=== PATIENT | female | born 1995 | race Caucasian/White ===

== ENCOUNTER 2020-05-30 11:23 | Emergency (ER) | payer OTHER ==
[~2020-05-30] VITALS: Ht 170.2 cm; Wt 71.2 kg
[2020-05-30] MEDS ORDERED: PRENA1 TRUE CO1 EACH (11:30)
== END 2020-05-30 15:41 | disposition home or self-care (01) ==
LOC: ER 11:23
DX: O26.851 Spotting complicating pregnancy, first trimester (principal); Z3A.00 Weeks of gestation of pregnancy not specified

== ENCOUNTER → 2021-02-07 | Outpatient (CLI) | payer OTHER ==
[~2021-02-07] MED LIST: PRENA1 TRUE CO1 EACH
== END | disposition home or self-care (01) ==
LOC: PRENATAL 08:00
PROVIDERS: ATTEND Obstetrics & Gynecology Maternal & Fetal Medicine
DX: O35.0XX1 Maternal care for (suspected) central nervous system malformation in fetus, fetus 1 (principal); O35.3XX1 Maternal care for (suspected) damage to fetus from viral disease in mother, fetus 1; O98.512 Other viral diseases complicating pregnancy, second trimester; Z36.89 Encounter for other specified antenatal screening; Z3A.23 23 weeks gestation of pregnancy

== ENCOUNTER 2021-05-17 13:30 | Inpatient (IN) | payer OTHER ==
[~2021-05-17] VITALS: Ht 167.6 cm; Wt 82.1 kg
[2021-06-01] MEDS ORDERED: VALACYCLOVIR500 MG PO (18:30)
== END 2021-06-04 13:21 | disposition home or self-care (01) | DRG 807 ==
LOC: LDR 06-01 16:36 → PED 06-02 14:20 → LDR 06-03 13:30 → PED 06-04 13:21
PROVIDERS: ADMIT Obstetrics & Gynecology; ATTEND Obstetrics & Gynecology
PROC: 3E0P7VZ Introduction of Hormone into Female Reproductive, Via Natural or Artificial Opening (ICD-10-PCS; 2021-06-01)
PROC: 4A1HXFZ Monitoring of Products of Conception, Cardiac Rhythm, External Approach (ICD-10-PCS; 2021-06-01)
PROC: 10E0XZZ Delivery of Products of Conception, External Approach (ICD-10-PCS; principal; 2021-06-02)
PROC: 0W8NXZZ Division of Female Perineum, External Approach (ICD-10-PCS; 2021-06-02)
PROC: 10907ZC Drainage of Amniotic Fluid, Therapeutic from Products of Conception, Via Natural or Artificial Opening (ICD-10-PCS; 2021-06-02)
DX: O24.429 Gestational diabetes mellitus in childbirth, unspecified control (principal); Z37.0 Single live birth; Z3A.39 39 weeks gestation of pregnancy

== ENCOUNTER 2024-06-26 05:49 | Inpatient (IN) | payer OTHER ==
[2024-06-26] VITALS (10 sets, daily range): BP systolic 124–144; BP diastolic 51–74
[~2024-06-26] VITALS: Ht 170.2 cm; Wt 82.1 kg
[~2024-06-26 05:49] MED LIST changes: +VALACYCLOVIR500 MG PO
[2024-06-26 07:55] LABS: HEMATOCRIT 38.6 % (36.0-45.00); HEMOGLOBIN 13.2 g/dL (12.0-15.00); MEAN CELL VOLUME 85.4 fL (80.00-100.00); MEAN CORPUSCULAR HEMOGLOBIN 29.1 pg (27.00-32.0); MEAN CORPUSCULAR HGB CONC 34.1 g/dl (32.0-36.0); PLATELET COUNT 145 K/uL (150-450); RED BLOOD COUNT 4.51 M/uL (4.00-6.00); RED CELL DISTRIBUTION WIDTH 14.1 % (11.5-14.5)
[2024-06-26] MEDS ORDERED: RINGERS SOLUTION,LACTATED 1,000 ML IV SCH (08:00)
[2024-06-26] MEDS ORDERED: OXYTOCIN 500 ML IV SCH (08:00)
[2024-06-26 08:04] LABS: URINE APPEARANCE Turbid; URINE BILIRRUBIN Negative (NEGATIVE); URINE BLOOD Negative; URINE COLOR Yellow; URINE GLUCOSE Negative (NEGATIVE); URINE KETONE Negative (NEGATIVE); URINE LEUKOCYTE Large; URINE NITRATE Negative; URINE PROTEIN Negative (NEGATIVE); URINE UROBILINOGEN 0.2 E.U./dl
[2024-06-26 08:07] LABS: URINE BACTERIA 2872.7 uL (0.0-1933); URINE EPITHELIAL CELLS 81.4 uL (0.0-38.8); URINE RBC 4.7 uL (0.0-20.8); URINE WBC 22.1 uL (0.0-23.2)
[2024-06-26 08:14] LABS: URINE CAST 0.15 uL (0.0-1.40)
[2024-06-26 08:21] LABS: URINE CRYSTALS MODERATE /HPF
[2024-06-26 08:39] LABS: INR 0.99; PARTIAL THROMBOPLASTIN TIME 31.1 SECONDS (22.0-34.0); PROTHROMBIN TIME 10.8 SECONDS (9.0-11.5)
[2024-06-26 09:03] LABS: ALBUMIN 3.1 gm/dL (3.4-5.0); BILIRUBIN TOTAL 0.27 mg/dL (0.3-1.2); CALCIUM 8.8 mg/dL (8.5-10.1); CREATININE SERUM 0.59 mg/dL (0.55-1.02); GFR 121.37; GLOBULINA 3.4 G/DL (2.4-3.5); POTASSIUM 3.52 mEq/L (3.5-5.1); TOTAL PROTEIN 6.5 gm/dL (6.4-8.2)
[2024-06-26] MEDS ORDERED: CHLORHEXIDINE GLUCONATE 120 ML BOTTLE TOP ONE (13:45)
[2024-06-26] MEDS ORDERED: OXYTOCIN 1,000 ML IV SCH (13:45)
[2024-06-26] MEDS ORDERED: LIDOCAINE HCL 1% 10ML VIAL PERCUT ONE (13:45)
[2024-06-26] MEDS ORDERED: ERYTHROMYCIN BASE OPHT 1GM EACH TUBE OP ONE (13:45)
[2024-06-26] MEDS ORDERED: IBUprofen 400 MG TABLET PO PRN (14:00)
[2024-06-26] MEDS ORDERED: CHLORHEXIDINE GLUCONATE 120 ML BOTTLE TOP SCH (14:00)
[2024-06-26] MEDS ORDERED: ACETAMINOPHEN 500 MG GEL..CAP PO PRN (14:15)
[2024-06-27 00:15] VITALS: BP 108/63
[2024-06-27 09:00] VITALS: BP 124/73
[2024-06-27 16:00] VITALS: BP 110/66
[2024-06-28] VITALS: BP 115/71
== END 2024-06-28 14:21 | disposition home or self-care (01) | DRG 807 ==
LOC: LDR 05:49 → OB/GYN 12:18
PROVIDERS: ADMIT Obstetrics & Gynecology; ATTEND Obstetrics & Gynecology
PROC: 10E0XZZ Delivery of Products of Conception, External Approach (ICD-10-PCS; principal; 2024-06-26)
PROC: 0HQ9XZZ Repair Perineum Skin, External Approach (ICD-10-PCS; 2024-06-26)
PROC: 4A1HXCZ Monitoring of Products of Conception, Cardiac Rate, External Approach (ICD-10-PCS; 2024-06-26)
DX: O70.0 First degree perineal laceration during delivery (principal); Z37.0 Single live birth; Z3A.38 38 weeks gestation of pregnancy; Z20.822 Contact with and (suspected) exposure to COVID-19